=== PATIENT | female | born 1955 | race Caucasian/White ===

== ENCOUNTER 2018-03-21 14:20 | Outpatient (CLI) | payer OTHER | END 2018-03-21 14:25 | disposition home or self-care (01) | LOC: TOM 14:20 | DX: K57.32 Diverticulitis of large intestine without perforation or abscess without bleeding (principal) ==

== ENCOUNTER 2020-02-20 09:17 | Outpatient (CLI) | payer OTHER | END 2020-02-20 09:34 | disposition home or self-care (01) | LOC: SONOGRAMA 09:17 | PROVIDERS: ATTEND Internal Medicine Sports Medicine | DX: M65.88 Other synovitis and tenosynovitis, other site (principal); M75.42 Impingement syndrome of left shoulder; M77.12 Lateral epicondylitis, left elbow ==

== ENCOUNTER 2020-10-23 14:44 | Emergency (ER) | payer OTHER ==
[~2020-10-23] VITALS: Ht 160 cm; Wt 62.6 kg
[2020-10-23] MEDS ORDERED: SYNTHROID100 MCG PO (15:32)
[2020-10-23] MEDS ORDERED: LIPITOR20 MG PO (15:32)
[2020-10-23] MEDS ORDERED: CIPRO500 MG PO (16:13)
== END 2020-10-23 16:32 | disposition home or self-care (01) ==
LOC: ER 14:44
DX: S80.872A Other superficial bite, left lower leg, initial encounter (principal); S80.871A Other superficial bite, right lower leg, initial encounter; W54.0XXA Bitten by dog, initial encounter; Y90.9 Presence of alcohol in blood, level not specified; Y92.488 Other paved roadways as the place of occurrence of the external cause

== ENCOUNTER 2022-06-17 05:45 | Day surgery (SDC) | payer OTHER ==
[~2022-06-17] VITALS: Ht 157.5 cm; Wt 61.2 kg
[~2022-06-17 05:45] MED LIST: CIPRO500 MG PO; LIPITOR20 MG PO; SYNTHROID100 MCG PO
== END 2022-06-17 14:10 | disposition home or self-care (01) ==
LOC: CIR.AMB 05:45
PROVIDERS: ATTEND Obstetrics & Gynecology
DX: N84.0 Polyp of corpus uteri (principal); B07.8 Other viral warts; R93.89 Abnormal findings on diagnostic imaging of other specified body structures; Z20.828 Contact with and (suspected) exposure to other viral communicable diseases; E03.9 Hypothyroidism, unspecified

== ENCOUNTER 2024-08-30 12:39 | Outpatient (CLI) | payer OTHER | END 2024-08-30 12:48 | disposition home or self-care (01) | LOC: MAMO-SONO 12:39 | PROVIDERS: ATTEND Internal Medicine | DX: N60.29 Fibroadenosis of unspecified breast (principal); Z12.31 Encounter for screening mammogram for malignant neoplasm of breast ==